=== PATIENT | female | born 1960 | race Caucasian/White ===

== ENCOUNTER → 2017-06-04 | Day surgery (SDC) | payer OTHER ==
[~2017-06-04] VITALS: Ht 160 cm; Wt 97.6 kg
[~2017-06-04] MED LIST: *ONDANSETRON 4 MG VIAL PERIprocedural Use ONLY ONE; *morphine SULFATE 4 MG/ML PERIprocedure ONLY ONE; ACETAMINOPHEN 1000 MG/100 ML 100 ML IV ONE; ACETAMINOPHEN/HYDROcodone 325 MG/7.5 MG TAB PO PRN; BUPIVACAINE HCL PF 0.5% 30 ML VIAL ONE; BUPIVACAINE/EPINEPHRINE 0.25% 50 ML VIAL ONE; CHLORHEXIDINE GLUCONATE 2 % 1 PACK (2 CLOTHS) TOPICAL PRN; CHLORHEXIDINE GLUCONATE 4% SOLN 120 ML BTL TOPICAL SCH; CLINDAMYCIN PHOS 900 MG/6 ML VIAL ONE; DEXAMETHASONE SOD PHOS 4 MG/ML VIAL IV ONE; DO NOT ADM ANY ANTICOAGULANT DRUGS PRN; ETOMIDATE 20 MG/10 ML VIAL ONE; FAMOTIDINE 20 MG/2 ML VIAL ONE; GENTAMICIN SULFATE 80 MG/2 ML VIAL ONE; HYDR-3288 PO; HYDROmorphone HCL PF 2 MG/ML VIAL ONE; KETAMINE HCL 50 MG/5 ML SYRINGE ONE; KETOROLAC TROMETHAMINE 30 MG/ML (IVP) VIAL ONE; LACTATED RINGER'S 1000 ML IV PRN; LEVO75TA3 PO; LIDOCAINE HCL 1% PF 5 ML SYRINGE OTHER ONE; LIDOCAINE HCL 2% 20 ML VIAL ONE; METOPROLOL TARTRATE 25 MG TAB PO PRN; MIDAZOLAM HCL 2 MG/2 ML VIAL ONE; MORPHINE SULFATE 4 MG/ML INJ IV PUSH PRN; NALOXONE HCL 0.4 MG/ML AMP IV ONE; NALOXONE HCL 0.4 MG/ML AMP ONE; OMEP20TA93 PO; ONDANSETRON HCL 4 MG/2 ML VIAL IV ONE; POVIDONE IODINE 5% (ANTISEPSIS KIT) 4 APPLICATIONS EACH NARE PRN; PROMETHAZINE INJ 25 MG/ML VIAL ONE; PROPOFOL 200 MG/20 ML AMP IV ONE; SODIUM CHLORID 0.9% 500 ML IV PRN; TRAM50TA PO; VANCOMYCIN 1000 MG/NS 250 ML (for <70 kg) IV SCH
--- NOTE | 2017-06-04 07:21 | EKG ---
Date Performed: 06/04/2017 Time Performed: 06:15:56 PTAGE: 56 years EKG: Sinus rhythm NORMAL ECG NO PREVIOUS TRACING DOCTOR: Jet Ritter Interpretating Date/Time 06/04/2017 07:19:09
--- NOTE | 2017-06-04 08:19 | PD.OP ---
cc: Aaron Gómez MD Operative Report Date of Surgery: Jun 04, 2017 Preoperative Diagnosis: Displaced left distal radius fracture Postoperative Diagnosis: Procedure: Open reduction internal fixation left distal radius Anesthesia: Gen. Surgeon: Aaron Gómez Switch Engineer(s): JESS Phelan PA-C The surgical procedure was assisted by my physician salon shampoo assistant. My P.A. presence was necessary throughout this case for the manipulation and positioning of the surgical extremity. My P.A. was assisting me throughout the duration of this procedure. The skill set of a physician salon shampoo assistant was medically necessary to complete this procedure. During the surgical case the rn surgical was working at the back table and the physician salon shampoo assistant was directly assisting me. Operation and Findings: Implants used: ITS Plan of activity: Nonweightbearing on operative arm Patient was seen and evaluated preoperatively and found to have a displaced distal radius fracture. Informed consent was obtained after detailed discussion of risk and benefits including bleeding, infection, injury to arteries, nerves, and blood vessels, weakness and numbness of hand, and tendon rupture. Informed consent was obtained. Patient received IV antibiotics prior to incision. Timeout procedure was performed. Operative extremity was prepped with alcohol followed by Hibiclens and draped usual sterile fashion. A standard volar approach to the distal radius was utilized. A 3 inch incision was made over the FCR tendon. Tendon sheath was opened. Pronator quadratus was elevated up. The fracture site was now visualized. Traction was applied. The articular surface was reduced. Fracture fragments were manipulated to achieve excellent reduction. K wires were used to hold provisional fixation. Fluoroscopy confirmed appropriate alignment of fracture. A variable angle distal radius plate was selected. Plate was provisionally fixed to bone with K wires. 2.7 and 2.4 cortical screws were used to compress plate to bone. Fluoroscopy confirmed appropriate alignment of fracture with well-placed hardware. Multiple 2.4 locking screws were now placed distally. Screws were predrilled and measured for appropriate length. 2 additional screws were placed into the shaft. K wires were removed. Final fluoroscopy revealed excellent of fracture with well-placed hardware. The wound was thoroughly irrigated with sterile saline. Subcutaneous tissue was closed with 3-0 Vicryl and skin was closed with 3-0 nylon. Sterile dressings were applied with Xeroform, 4 x 4, soft roll, and a well padded volar splint. Patient was awakened and transferred to recovery room in stable condition Aaron Gómez MD Jun 04, 2017 08:19
--- NOTE | 2017-06-04 11:04 | RADRPT ---
EXAM DATE/TIME: 06/04/2017 08:05 [facility] COMPARISON: WRIST LEFT COMPLETE ([id number]), May 17, 2017, 15:38. INDICATIONS : ORIF left wrist fracture. MEDICAL HISTORY : Unobtainable. SURGICAL HISTORY : Unobtainable. ENCOUNTER: Subsequent ACUITY: 2 weeks PAIN SCORE: Non-responsive. LOCATION: Left wrist. FINDINGS: Hardware is noted within the left distal radius status post ORIF. Hardware appears be in good positio n. The radius is adequately aligned. The displaced ulnar styloid process fracture is again noted. CONCLUSION: 1. Status post ORIF of left distal radial fracture with hardware in good position. 2. Persistent displaced ulnar styloid process fracture. Dylan Chao MD on June 04, 2017 at 10:59 Board Certified Radiologist. This report was verified electronically.
[2017-06-04 14:30] VITALS: BP 117/67; PULSE 67; RESP 18; TEMP 97.5; O2SAT 94
== END | disposition home or self-care (01) ==
LOC: HSDC 05:09
PROVIDERS: ATTEND Orthopaedic Surgery Orthopaedic Trauma
DX: S52.502A Unspecified fracture of the lower end of left radius, initial encounter for closed fracture (principal); W19.XXXA Unspecified fall, initial encounter; Y92.017 Garden or yard in single-family (private) house as the place of occurrence of the external cause; Z01.810 Encounter for preprocedural cardiovascular examination
CPT/HCPCS: 01830; 25607; 73100; 76000; 93005; C1713; J0131; J1100; J1170; J1580; J1885; J2250; J2270; J2310; J2405; J2550; J3370; J7050; J7120